=== PATIENT | female | born 1980 | race American Indian/Alaskan Native ===

== ENCOUNTER 2017-08-17 06:23 | Emergency (ER) | payer OTHER ==
[2017-08-17 07:07] LABS: Basophils % (Auto) 0.4 % (0.0-1.8); Eosinophils # (Auto) 0.1 K/mm3 (0.0-0.4); Hematocrit 38.2 % (30.3-42.9); Hemoglobin 12.6 gm/dl (10.1-14.3); Lymphocytes # (Auto) 1.6 K/mm3 (1.2-5.4); Lymphocytes % (Auto) 21.8 % (13.4-35.0); Mean Corpuscular HGB Conc 33 % (30-34); Mean Corpuscular Hemoglobin 31 pg (28-32); Mean Corpuscular Volume 94 fl (79-97); Monocytes # (Auto) 0.4 K/mm3 (0.0-0.8); Monocytes % (Auto) 5.5 % (0.0-7.3); Platelet Count 192 K/mm3 (140-440); Red Blood Count 4.04 M/mm3 (3.65-5.03); Red Cell Distribution Width 13.1 % (13.2-15.2)
[2017-08-17 07:18] LABS: Bacteria,Urine 1+ /HPF (Negative); Bilirubin,Urine NEG (Negative); Blood,Urine SM (Negative); Color,Urine Yellow (Yellow); Mucus,Urine 3+ /HPF; Protein,Urine <15 mg/dL mg/dL (Negative); Urobilinogen,Urine < 2.0 mg/dL (<2.0)
[2017-08-17 07:20] LABS: Alanine Aminotransferase 16 units/L (7-56); Albumin 4.1 g/dL (3.9-5); BUN/Creatinine Ratio 15; Blood Urea Nitrogen 9 mg/dL (7-17); Calcium 8.8 mg/dL (8.4-10.2); Hemolysis Index 8
[2017-08-17 14:07] VITALS: BP 110/76
== END 2017-08-17 14:36 | disposition left against medical advice (07) ==
LOC: ED 06:23
DX: R10.9 Unspecified abdominal pain (principal); Z53.21 Procedure and treatment not carried out due to patient leaving prior to being seen by health care provider
CPT/HCPCS: 36415; 80053; 81001; 84703; 85025

== ENCOUNTER 2019-07-13 08:28 | Emergency (ER) | payer SELFPAY ==
[2019-07-13 08:35] VITALS: BP 138/86
--- NOTE | 2019-07-13 09:36 | Emergency Department Report ---
Chief Complaint: Back Pain/Injury Stated Complaint: BACK PAIN Time Seen by Provider: 07/13/19 09:31 - HPI History of Present Illness: 39-year-old -[place] female presents to the emergency room for chronic back pain. Patient states that the last 2 days she's had acute back pain on top of her chronic back pain. Patient states that she has only taken Tylenol. Patient denies any dysuria no vaginal discharge. Patient denies any trauma. 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 - Exam Vital Signs: Vital Signs 07/13/19 08:34 Temperature 98.0 F Pulse Rate 103 H Respiratory 16 Rate Blood Pressure 138/86 O2 Sat by Pulse 99 Oximetry Physical Exam: Patient is alert and oriented 3 in no acute distress nontoxic in appearance. Back full range of motion no vertebral or paraspinal tenderness. Able to ambulate without difficulty. MSE screening note: Focused history and physical exam performed. Due to findings the following was ordered: 39-year-old -[place] female presents to the emergency room for chronic back pain. Patient states that the last 2 days she's had acute back pain on top of her chronic back pain. Patient states that she has only taken Tylenol. Patient denies any dysuria no vaginal discharge. Patient denies any trauma. 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 Discussed the patient that she can take ibuprofen for pain management and to follow-up with a primary care provider. ED Disposition for MSE Clinical Impression: Back pain Disposition: Z-07 MED SCREENING EXAM-LEFT Is pt being admited?: No Does the pt Need Aspirin: No Condition: Stable Additional Instructions: You can take ibuprofen or Aleve for pain management. Follow up with her primary care provider I have listed one below for your convenience. Referrals: BRAULIO DICKSON MD [Primary Care Provider] - 3-5 Days BISI URIAS MD [Staff Physician] - 3-5 Days
== END 2019-07-13 09:45 | disposition left against medical advice (07) ==
LOC: ED 08:28
DX: M54.9 Dorsalgia, unspecified (principal); G89.29 Other chronic pain
CPT/HCPCS: 99281

== ENCOUNTER 2019-08-03 17:03 | Emergency (ER) | payer SELFPAY ==
[2019-08-03 19:36] VITALS: BP 99/58
== END 2019-08-03 19:35 | disposition left against medical advice (07) ==
LOC: ED 17:03
DX: R10.9 Unspecified abdominal pain (principal); Z53.21 Procedure and treatment not carried out due to patient leaving prior to being seen by health care provider